=== PATIENT | male | born 1980 ===

== ENCOUNTER 2023-09-18 15:35 | Emergency (ER) | payer SELFPAY ==
[2023-09-18 15:38] VITALS: BP 112/88
--- NOTE | 2023-09-18 16:16 | ED.GENMED ---
History of Present Illness
General
Chief Complaint: Headache
Source: patient
Exam Limitations: none
Time Seen by Provider: 09/18/23 15:47
Travel History
Have you had any contact with someone who has COVID-19?: No
Do you have any symptoms of coronavirus? Fever > 100 degrees, chills, cough, shortness of breath, sore throat, loss of taste or smell, muscle aches, or headache?: No
History of Present Illness
History of Present Illness:
43-year-old male presents with laceration to scalp he sustained today. He was working on a roof and slipped in the panel with a screw slid and hit him in the head. The screw cut the scalp. No loss of conscious. He notes no headache loss
conscious nausea vomiting vision change. No neck pain. No other complaints at this time
Phy Exam
Physical Exam
Physical Exam:
General: Well-appearing male in no acute respiratory distress
HEENT: Normocephalic 2 cm laceration to left parietal scalp in the front to back direction. Superficial without current bleeding edges around half a centimeter pupils equal round reactive to light TMs normal
Neurologic: Normal gait conversing appropriately extraocular motions are intact
Musculoskeletal exam: Cervical spine nontender
Course
Vital Signs
Initial and Last Documented VS:
Initial Vital Signs
Temp Pulse Resp BP Pulse Ox
98.1 F 84 20 112/88 98
09/18/23 15:38 09/18/23 15:38 09/18/23 15:38 09/18/23 15:38 09/18/23 15:38
Last Documented Vital Signs
Temp Pulse Resp BP Pulse Ox
98.1 F 84 20 112/88 98
09/18/23 15:38 09/18/23 15:38 09/18/23 15:38 09/18/23 15:38 09/18/23 15:38
MDM/Problems Addressed
Differential Diagnosis Includes:
Laceration left parietal scalp. No neurologic deficit. No concern for significant intracranial injury. Do not suspect concussion. The wound was irrigated with saline and anesthetized with 1% plain lidocaine. 2 skin rafy were used to
approximate the wound edges. Wound care instructions were given patient stable for discharge no indication for imaging
*Critical Care Note
Total Time (30-74mins, 75-104mins- exclusive of procedures): Not Applicable
ED Attending Note
-
Portions of this chart may have been created with voice recognition software.� Occasional wrong word or��sound alike� substitutions may have occurred due to the inherent limitations of voice recognition software.
Discharge Plan
Departure
Patient Disposition: Home (Routine Discharge)
Date of Disposition: 09/18/23
Time of Disposition: 16:19
Patient with high blood pressure during this ER visit?: No
Discharge Problem:
Laceration
Instructions: Laceration
Activity Restrictions/Additional Instructions:
You may apply ice for pain. Use Tylenol or ibuprofen for pain. Have rafy removed in 7 to 10 days. Return if needed otherwise
Discharge Date and Time
Print Language: HUNGARIAN
[2023-09-18 16:57] VITALS: BP 141/71
== END 2023-09-18 16:57 | disposition home or self-care (01) ==
LOC: EMR 15:35
PROVIDERS: EMERGENCY PHYSICIAN Emergency Medicine
DX: S01.01XA Laceration without foreign body of scalp, initial encounter (principal); W22.8XXA Striking against or struck by other objects, initial encounter
CPT/HCPCS: 99282; 12001